=== PATIENT | male | born 1945 | race Caucasian/White ===

== ENCOUNTER 2017-08-18 11:09 | Inpatient (IN) | payer OTHER ==
[~2017-08-18] VITALS: Ht 177.8 cm; Wt 83.6 kg
--- NOTE | ~2017-08-18 | PR ---
[place], [place] PROGRESS NOTE [id number] UNIT #: [id number] ROOM: 511 DOCTOR: MIMI VILLALBA MD BIRTHDATE: [birth year] DOS: 08/19/2017 SUBJECTIVE: The patient was seen in the Cardiology Department today 08/19/2017 prior to a pharmacologic stress test. He is a 71-year-old man who has numerous risk factors for coronary artery disease and presented with atypical chest pain yesterday. Since he has been admitted, he states that his pains have resolved. Serial troponin levels have shown no elevation to suggest a recent myocardial injury. PHYSICAL EXAMINATION: VITAL SIGNS: Today, his pulse is 65 and regular, blood pressure is 157/73. He is afebrile. He weighs 83.6 kilograms with a body mass index of 26.4. NECK: Supple. He has no jugular distention. Carotids are full without bruits. LUNGS: Respirations are unlabored. He has decreased breath sounds bilaterally. HEART: Has a regular rhythm with a fourth heart sound. ABDOMEN: Obese, but otherwise benign. EXTREMITIES: Showed no edema today. IMPRESSION: 1. Atypical chest pain. 2. Multiple coronary risk factors including diabetes, hypertension, hyperlipidemia and obstructive sleep apnea. Complicating his evaluation is the fact that he does have chronic renal insufficiency and IVP DYE allergy. PLAN: We will proceed with a pharmacologic stress test today to help risk stratify the patient. If he has a normal test or a mildly abnormal test, we will probably strive to treat him medically for coronary atherosclerosis. On the other hand, if he does have a very high risk study, we will discuss with him the possibility of proceeding with catheterization, understanding that his risk for complications will be higher than the average patients. I thank the hospitalist physicians for asking our advice regarding his care. MIMI VILLALBA MD CM:PNTRANS 07 MIMI VILLALBA MD 08/19/178 interface
[~2017-08-18 11:09] MED LIST: ABILIFY20 MG PO; ASPIRIN81 MG PO; ATIVAN1 MG PO; CARVEDILOL12.5 MG PO; CELEXA40 MG PO; CIPROFLOXACIN500 MG PO; DIVALPROEX SOD500 M1 PO; EC NAPROSYN500 MG PO; ERGOCALCIFER50000 IU PO; HUMALOG100 U/ML SC; LANTUS SOL100 UNIT/1 SQ; LASIX40 MG PO; LISINOPRIL40 MG PO; LYRICA50 MG PO; METFORMIN1000 MG PO; MICRONASE5 MG PO; MULTIPLE VITAMI1 CAP PO; NORVASC5 MG PO; NOVOLIN 70/30 701 EA SC; ONDANSETRON H2 MG/ML IV; OXYBUTYNIN5 MG PO; PLAVIX75 MG PO; PROTONIX40 M1 IV; RANITIDINE150 MG PO; ROPINIROLE HYD0.5 MG PO; SERTRALINE HYD100 MG PO; SIMVASTATIN40 MG PO; TERAZOSIN HCL2 MG PO
[2017-08-18 11:21] VITALS: BP 154/72
[2017-08-18 12:05] LABS: BASO % 0.7 % (0.0-1.0); EOS # 0.2 10*3/uL (0.0-0.4); EOS % 3.7 % (1.0-4.0); HEMATOCRIT 37.5 % (42.0-52.0); HEMOGLOBIN 12.7 g/dl (14.0-18.0); LYMPH # 1.1 10*3/uL (1.3-4.4); LYMPH % 23.5 % (27.0-41.0); MEAN CELL VOLUME 90.6 fl (80.0-94.0); MEAN CORPUSCULAR HGB 30.7 pg (27.0-31.0); MEAN CORPUSCULAR HGB CONC 33.9 g/dl (33.0-37.0); MEAN PLATELET VOLUME 10.4 fl (9.6-12.3); MONO # 0.3 10*3/uL (0.1-1.0); MONO % 6.4 % (3.0-9.0); PLATELET COUNT AUTOMATED 141 10*3/uL (130-400); RED BLOOD COUNT 4.14 10*6/uL (4.50-5.90); RED CELL DISTRI WIDTH 12.7 % (0-14.5); WHITE BLOOD COUNT 4.6 10*3/uL (4.8-10.8)
[2017-08-18 12:15] LABS: ACT PARTIAL THROMBO TIME 24.5 SECONDS (20.8-31.5)
[2017-08-18 12:22] LABS: ALBUMIN 3.2 gm/dl (3.1-4.5); CREATININE 1.66 mg/dL (0.70-1.30); MAGNESIUM 2.1 mg/dL (1.5-2.1); POTASSIUM 4.2 mmol/L (3.5-5.1); TOTAL PROTEIN 6.7 gm/dL (6.4-8.2)
[2017-08-18 12:24] LABS: TROPONIN I 0.019 ng/ml (<0.045)
[2017-08-18 12:56] VITALS: BP 155/75
[2017-08-18 13:30] VITALS: BP 150/64
--- NOTE | 2017-08-18 13:30 | NUR ---
DC TO HOME
[2017-08-18 13:50] VITALS: BP 154/72
--- NOTE | 2017-08-18 13:50 | NUR ---
A 71, admitted to , under the services of CHASITY Churchill DO with a diagnosis of CHEST PAIN. Chief complaint is CHEST PAIN FOR MONTHS. Patient arrived via stretcher from ER. Monitor applied. Initial assessment completed. Vital signs taken and recorded. CHASITY CHURCHILL DO notified of admission to the unit. Orders received. See assessment for past medical history, medications and allergies. Patient and/or family oriented to unit. [facility] visitation policy reviewed. Clothing/patient valuable form completed. AGNES DEXTER
[2017-08-18] MEDS ORDERED: CLOPIDOGREL75 MG PO (13:53)
[2017-08-18] MEDS ORDERED: TERAZOSIN HCL10 M1 PO (14:00)
[2017-08-18] MEDS ORDERED: LYRICA50 M1 PO (14:01)
[2017-08-18] MEDS ORDERED: ISOSORBIDE30 MG PO (14:04)
[2017-08-18] MEDS ORDERED: ZOLOFT100 MG PO (14:05)
[2017-08-18] MEDS ORDERED: ZESTRIL40 MG PO (14:09)
[2017-08-18] MEDS ORDERED: TROSPIUM CHLORI20 M1 PO (14:09)
[2017-08-18] MEDS ORDERED: LIPITOR80 MG PO (14:10)
[2017-08-18] MEDS ORDERED: RANITIDINE HCL150 M1 PO (14:12)
[2017-08-18] MEDS ORDERED: FLUTICASONE P15.8 ML NAS (14:14)
[2017-08-18] MEDS ORDERED: NITROSTAT0.4 MG SL (14:15)
--- NOTE | 2017-08-18 14:20 | NUR ---
MEDICATIONS VERIFIED BY [place] MEDICATION LIST. PER PATIENT HE TAKES ALL HIS HOME MEDICATIONS AT BED TIME. DR. DANIELSON NOTIFIED AT THIS TIME.
[2017-08-18 16:00] VITALS: BP 160/84
--- NOTE | 2017-08-18 16:00 | NUR ---
DR LORA HERE TO SEE PT
[2017-08-18 20:00] VITALS: BP 158/90
[2017-08-19] VITALS: BP 158/78
--- NOTE | 2017-08-19 03:23 | NUR ---
RESTING IN BED WITH EYES CLOSED. NO SIGNS OR SYMPTOMS OF DISTRESS NOTED. SLEPT WELL THROUGHOUT SHIFT. NO COMPLAINTS OF PAIN OR DISCOMFORT VOICED. WILL CONTINUE TO MONITOR. CALL LIGHT IN REACH.
[2017-08-19 07:18] LABS: BASO % 0.4 % (0.0-1.0); EOS # 0.3 10*3/uL (0.0-0.4); EOS % 5.2 % (1.0-4.0); HEMATOCRIT 35.5 % (42.0-52.0); HEMOGLOBIN 12.3 g/dl (14.0-18.0); LYMPH # 1.5 10*3/uL (1.3-4.4); LYMPH % 28.8 % (27.0-41.0); MEAN CELL VOLUME 89.6 fl (80.0-94.0); MEAN CORPUSCULAR HGB 31.1 pg (27.0-31.0); MEAN CORPUSCULAR HGB CONC 34.6 g/dl (33.0-37.0); MEAN PLATELET VOLUME 10.7 fl (9.6-12.3); MONO # 0.4 10*3/uL (0.1-1.0); MONO % 6.6 % (3.0-9.0); NEUT # 3.1 10*3/uL (2.3-7.9); NEUT % 58.4 % (47.0-73.0); PLATELET COUNT AUTOMATED 148 10*3/uL (130-400); RED BLOOD COUNT 3.96 10*6/uL (4.50-5.90); RED CELL DISTRI WIDTH 12.6 % (0-14.5); WHITE BLOOD COUNT 5.3 10*3/uL (4.8-10.8)
[2017-08-19 07:35] LABS: ALBUMIN 3.2 gm/dl (3.1-4.5); CREATININE 1.5 mg/dL (0.70-1.30); MAGNESIUM 2.1 mg/dL (1.5-2.1); PHOSPHOROUS 3.6 mg/dL (2.5-4.9); POTASSIUM 3.5 mmol/L (3.5-5.1); TOTAL PROTEIN 6.6 gm/dL (6.4-8.2)
[2017-08-19 07:36] LABS: ACT PARTIAL THROMBO TIME 24.1 SECONDS (20.8-31.5); INTERNATIONAL NORM RATIO 1.1 (2.0-3.5)
[2017-08-19 07:41] LABS: FREE T4 0.92 ng/dl (0.76-1.46); THYROID STIM HORMONE (HS) 2.02 uIU/ml (0.358-4.75)
[2017-08-19 08:00] VITALS: BP 157/73
--- NOTE | 2017-08-19 08:30 | NUR ---
UNDERCOATER VS. PT OFF FLOOR FOR TESTING.
[2017-08-19 09:37] LABS: VITAMIN D, 25-HYDROXY 25.8 ng/mL (30-100)
--- NOTE | 2017-08-19 09:42 | NUR ---
INFORMED SIGNED CONSENT OBTAINED FOR LEXISCAN STRESS TEST WITH DR VILLALBA. RESTING EKG NSR HR 69 BP 136/82. PULSE OX 97% LUNGS CLEAR. ONE MINUTE LEXISCAN PROTOCOL COMPLETED WITH PT RECEIVING LEXISCAN 0.4MG IV OVER 10 SECONDS. NO ARRHYTHMIAS OR ST CHANGES NOTED. PT C/O SOB WITH INFUSION. LAST RECOVERY HR OF 81 BP 130/70. PT IN STABLE CONDITION, AWAITING NUCLEAR IMAGES.
--- NOTE | 2017-08-19 10:53 | NUR ---
SPOKE WITH PATRIZIA AT [facility]. AWARE PT IS HERE AND WILLING TO COME IF BED AVAILABLE. ALSO AWARE THAT [facility] SENT HIM HERE AND PT WANTS [facility] TO PAY THIS VISIT.
--- NOTE | 2017-08-19 15:49 | NUR ---
Discharge instructions reviewed with patient/family. Patient receptive and verbalizes understanding. Follow-up care arranged. Written instructions given to patient/family. JESSICA KUMAR
== END 2017-08-19 15:49 | disposition home or self-care (01) | DRG 391 ==
LOC: ED 11:09 → 5E 13:03 → EDHOLD 13:03 → 5E 13:04
PROVIDERS: Emergency Medicine; Internal Medicine; ADMIT Emergency Medicine
DX: K21.9 Gastro-esophageal reflux disease without esophagitis (principal); N17.0 Acute kidney failure with tubular necrosis; I13.2 Hypertensive heart and chronic kidney disease with heart failure and with stage 5 chronic kidney disease, or end stage renal disease; N18.6 End stage renal disease; I50.32 Chronic diastolic (congestive) heart failure; Z68.41 Body mass index [BMI] 40.0-44.9, adult; G47.33 Obstructive sleep apnea (adult) (pediatric); G20 Parkinson's disease; E66.01 Morbid (severe) obesity due to excess calories; E11.42 Type 2 diabetes mellitus with diabetic polyneuropathy; I25.119 Atherosclerotic heart disease of native coronary artery with unspecified angina pectoris; D64.9 Anemia, unspecified; E11.65 Type 2 diabetes mellitus with hyperglycemia; D72.810 Lymphocytopenia; E78.5 Hyperlipidemia, unspecified; E11.22 Type 2 diabetes mellitus with diabetic chronic kidney disease; Z86.73 Personal history of transient ischemic attack (TIA), and cerebral infarction without residual deficits; I25.2 Old myocardial infarction; Z79.4 Long term (current) use of insulin; Z91.041 Radiographic dye allergy status; Z87.440 Personal history of urinary (tract) infections; Z98.52 Vasectomy status; Z82.49 Family history of ischemic heart disease and other diseases of the circulatory system; Z83.3 Family history of diabetes mellitus; Z80.9 Family history of malignant neoplasm, unspecified; Z86.718 Personal history of other venous thrombosis and embolism; Z86.711 Personal history of pulmonary embolism; Z79.899 Other long term (current) drug therapy; Z87.891 Personal history of nicotine dependence

== ENCOUNTER 2018-01-11 06:03 | Emergency (ER) | payer OTHER ==
[~2018-01-11] VITALS: Ht 177.8 cm; Wt 127.0 kg
[~2018-01-11 06:03] MED LIST changes: +CLOPIDOGREL75 MG PO; +FLUTICASONE P15.8 ML NAS; +ISOSORBIDE30 MG PO; +LIPITOR80 MG PO; +LYRICA50 M1 PO; +NITROSTAT0.4 MG SL; +RANITIDINE HCL150 M1 PO; +TERAZOSIN HCL10 M1 PO; +TROSPIUM CHLORI20 M1 PO; +ZESTRIL40 MG PO; +ZOLOFT100 MG PO
[2018-01-11 06:31] LABS: BASO % 0.3 % (0.0-1.0); EOS # 0.2 10*3/uL (0.0-0.4); EOS % 2.8 % (1.0-4.0); HEMATOCRIT 39.2 % (42.0-52.0); HEMOGLOBIN 13.9 g/dl (14.0-18.0); LYMPH # 1.5 10*3/uL (1.3-4.4); LYMPH % 25.3 % (27.0-41.0); MEAN CELL VOLUME 87.5 fl (80.0-94.0); MEAN CORPUSCULAR HGB CONC 35.5 g/dl (33.0-37.0); MEAN PLATELET VOLUME 11.2 fl (9.6-12.3); MONO # 0.5 10*3/uL (0.1-1.0); MONO % 8.8 % (3.0-9.0); NEUT # 3.6 10*3/uL (2.3-7.9); NEUT % 62.5 % (47.0-73.0); PLATELET COUNT AUTOMATED 177 10*3/uL (130-400); RED BLOOD COUNT 4.48 10*6/uL (4.50-5.90); RED CELL DISTRI WIDTH 12.1 % (0-14.5); WHITE BLOOD COUNT 5.8 10*3/uL (4.8-10.8)
[2018-01-11 06:51] LABS: ACT PARTIAL THROMBO TIME 23.2 SECONDS (20.8-31.5); ALBUMIN 3.3 gm/dl (3.1-4.5); CREATININE 1.81 mg/dL (0.70-1.30); POTASSIUM 3.8 mmol/L (3.5-5.1); TOTAL PROTEIN 6.8 gm/dL (6.4-8.2)
[2018-01-11 06:52] LABS: TROPONIN I 0.025 ng/ml (<0.045)
[2018-01-11 08:16] LABS: BILIRUBIN NEGATIVE (NEGATIVE); BLOOD 1+ (NEGATIVE); CLARITY CLEAR (CLEAR); COLOR YELLOW (YELLOW); GLUCOSE 3+ (NEGATIVE); KETONE TRACE (NEGATIVE); LEUKO ESTERASE NEGATIVE (NEGATIVE); NITRITE NEGATIVE (NEGATIVE); PH 5.5 (5.0-9.0); SPECIFIC GRAVITY 1.025 (1.005-1.030); UROBILINOGEN 0.2 E.U./dl (0.2-1.0)
[2018-01-11 08:42] LABS: BACTERIA 1+; EPITHELIAL CELLS 0-2
== END 2018-01-11 10:15 | disposition short-term general hospital (02) ==
LOC: ED 06:03
PROVIDERS: Emergency Medicine Emergency Medical Services
DX: S22.39XA Fracture of one rib, unspecified side, initial encounter for closed fracture (principal); E11.65 Type 2 diabetes mellitus with hyperglycemia; I25.10 Atherosclerotic heart disease of native coronary artery without angina pectoris; I10 Essential (primary) hypertension; K21.9 Gastro-esophageal reflux disease without esophagitis; E78.5 Hyperlipidemia, unspecified; I25.2 Old myocardial infarction; E11.40 Type 2 diabetes mellitus with diabetic neuropathy, unspecified; G93.40 Encephalopathy, unspecified; Z91.040 Latex allergy status; Z86.73 Personal history of transient ischemic attack (TIA), and cerebral infarction without residual deficits; Z87.891 Personal history of nicotine dependence; X58.XXXA Exposure to other specified factors, initial encounter; Y93.89 Activity, other specified; Y92.89 Other specified places as the place of occurrence of the external cause; Y99.8 Other external cause status

== ENCOUNTER 2018-01-19 11:18 | Inpatient (IN) | payer MEDICARE ==
[2018-01-19] VITALS (7 sets, daily range): BP systolic 98–155; BP diastolic 53–84
[~2018-01-19] VITALS: Ht 177.8 cm
--- NOTE | ~2018-01-19 | CON ---
[place], [place] REPORT OF CONSULTATION NAME: MIMI TRUJILLO UNIT #: [id number] ROOM: 410 DOCTOR: THU HARRIS MD BIRTHDATE: [birth year] DOS: 01/22/2018 CHIEF COMPLAINT: "Oh hi Dr. Harris." HISTORY OF PRESENT ILLNESS: This is a 72-year-old male who presented through the Emergency Room with altered mental status and frequent falls. The patient was in the ER in [place] on January 11 for similar symptoms and transferred to [facility] for a neurologic workup. The patient has been exhibiting odd behavior at home like lying on the floor surrounded by pillows. He is forgetting where he is at. He is slurring his speech and not finding the right words. He has not been eating or drinking much for the last 3-4 weeks. PAST MEDICAL HISTORY: Remarkable for COPD, cerebral aneurysm clipping x 2, [place] exposure, coronary artery disease, chronic kidney disease, diabetes, GERD, hypertension, hyperlipidemia, neuropathy, obstructive sleep apnea. MENTAL STATUS: The patient is alert and oriented to person, place, approximate to time. He is rather slow in his responses. He did nod off occasionally and had to be reengaged. He does seem somewhat depressed and processes slowly. There is no hypomania or scott. There are no overt auditory or visual hallucinations. No delusions, no paranoia. Memory has some gaps. DIAGNOSIS: Major depression, recurrent. PLAN: He is on redundant antidepressants. The Zoloft and the Celexa can put him at greater risk for delirium and/or serotonin syndrome. They also seem to be ineffective, so I will discontinue both of them in lieu of Remeron 15 mg at bedtime. This should give him maximal appetite and sleep improvement. He is also on a subtherapeutic dose of Depakote 500 mg, should not be doing anything significant, so I will discontinue this in an effort to try to clean up his psychotropics. Should you require further intervention, please feel free to contact me at any time. THU HARRIS MD CM:CONSTR:REPORT OF CONSULTATION 1018 01/22/18 1341 interface
[2018-01-19 12:06] LABS: BASO % 0.4 % (0.0-1.0); EOS # 0.2 10*3/uL (0.0-0.4); EOS % 4.6 % (1.0-4.0); HEMATOCRIT 36.6 % (42.0-52.0); HEMOGLOBIN 12.4 g/dl (14.0-18.0); LYMPH # 1.1 10*3/uL (1.3-4.4); LYMPH % 23.6 % (27.0-41.0); MEAN CELL VOLUME 90.8 fl (80.0-94.0); MEAN CORPUSCULAR HGB 30.8 pg (27.0-31.0); MEAN CORPUSCULAR HGB CONC 33.9 g/dl (33.0-37.0); MEAN PLATELET VOLUME 10.3 fl (9.6-12.3); MONO # 0.4 10*3/uL (0.1-1.0); MONO % 7.5 % (3.0-9.0); NEUT % 63.5 % (47.0-73.0); PLATELET COUNT AUTOMATED 163 10*3/uL (130-400); RED BLOOD COUNT 4.03 10*6/uL (4.50-5.90); WHITE BLOOD COUNT 4.8 10*3/uL (4.8-10.8)
[2018-01-19 12:14] LABS: ACT PARTIAL THROMBO TIME 22.2 SECONDS (20.8-31.5)
[2018-01-19 12:21] LABS: CREATININE 1.98 mg/dL (0.70-1.30); POTASSIUM 3.9 mmol/L (3.5-5.1); TOTAL PROTEIN 6.6 gm/dL (6.4-8.2); TROPONIN I 0.021 ng/ml (<0.045)
[2018-01-19 15:12] LABS: BILIRUBIN NEGATIVE (NEGATIVE); BLOOD NEGATIVE (NEGATIVE); CLARITY CLEAR (CLEAR); COLOR YELLOW (YELLOW); GLUCOSE 2+ (NEGATIVE); KETONE NEGATIVE (NEGATIVE); LEUKO ESTERASE NEGATIVE (NEGATIVE); NITRITE NEGATIVE (NEGATIVE); SPECIFIC GRAVITY >= 1.030 (1.005-1.030); UROBILINOGEN 0.2 E.U./dl (0.2-1.0)
[2018-01-19 16:06] LABS: BACTERIA TRACE; FINE GRANULAR CAST 0-2; HYALINE CAST 0-3; RBC 0-2 rbc/hpf (0-2); WBC 0-2 wbc/hpf (0-5)
[2018-01-19] MEDS ORDERED: CELEXA40 MG PO (18:43)
[2018-01-19] MEDS ORDERED: DEPAKOTE DR500 MG PO (18:44)
[2018-01-19] MEDS ORDERED: VITAMIN D50000 UNIT PO (18:46)
[2018-01-19] MEDS ORDERED: LASIX40 MG PO (18:47)
[2018-01-19] MEDS ORDERED: GLYBURIDE5 MG PO (18:49)
[2018-01-19] MEDS ORDERED: AFREZZA SC (18:54)
[2018-01-19] MEDS ORDERED: METFORMIN1000 MG PO (18:55)
[2018-01-19] MEDS ORDERED: EC NAPROSYN,NA500 MG PO (18:56)
[2018-01-19] MEDS ORDERED: DITROPAN XL5 MG PO (18:57)
[2018-01-19] MEDS ORDERED: REQUIP0.5 MG PO (18:58)
[2018-01-19] MEDS ORDERED: SIMVASTATIN40 MG PO (18:59)
[2018-01-20] VITALS: BP 187/89
[2018-01-20 04:00] VITALS: BP 188/78
[2018-01-20 05:34] LABS: URINE AMPHETAMINES < 1000 (1000ng/ml); URINE BARBITURATES < 200 (200ng/ml); URINE BENZODIAZEPINES < 200 (200ng/ml); URINE CANNABINOIDS (THC) < 50 (50ng/ml); URINE COCAINE < 300 (300ng/ml); URINE METHADONE < 300 (300ng/ml); URINE OPIATES < 300 (300ng/ml)
[2018-01-20 05:36] LABS: URINE PHENCYCLIDINE < 25 (25ng/ml)
[2018-01-20 06:16] LABS: BASO % 0.9 % (0.0-1.0); EOS # 0.2 10*3/uL (0.0-0.4); EOS % 4.8 % (1.0-4.0); HEMATOCRIT 34.4 % (42.0-52.0); HEMOGLOBIN 11.8 g/dl (14.0-18.0); LYMPH # 1.5 10*3/uL (1.3-4.4); MEAN CELL VOLUME 89.8 fl (80.0-94.0); MEAN CORPUSCULAR HGB 30.8 pg (27.0-31.0); MEAN CORPUSCULAR HGB CONC 34.3 g/dl (33.0-37.0); MONO # 0.3 10*3/uL (0.1-1.0); MONO % 5.6 % (3.0-9.0); NEUT # 2.6 10*3/uL (2.3-7.9); NEUT % 56.3 % (47.0-73.0); PLATELET COUNT AUTOMATED 154 10*3/uL (130-400); RED BLOOD COUNT 3.83 10*6/uL (4.50-5.90); RED CELL DISTRI WIDTH 11.9 % (0-14.5); WHITE BLOOD COUNT 4.6 10*3/uL (4.8-10.8)
[2018-01-20 06:42] LABS: ALBUMIN 2.8 gm/dl (3.1-4.5); CREATININE 1.74 mg/dL (0.70-1.30); FREE T4 0.98 ng/dl (0.76-1.46); PHOSPHOROUS 3.2 mg/dL (2.5-4.9); POTASSIUM 3.6 mmol/L (3.5-5.1)
[2018-01-20 06:46] LABS: ACT PARTIAL THROMBO TIME 23.3 SECONDS (20.8-31.5)
[2018-01-20 06:47] LABS: THYROID STIM HORMONE (HS) 1.99 uIU/ml (0.358-4.75)
[2018-01-20 07:28] LABS: VITAMIN D, 25-HYDROXY 9.5 ng/mL (30-100)
[2018-01-20 08:00] VITALS: BP 179/81
[2018-01-20 12:00] VITALS: BP 177/75
[2018-01-20 16:00] VITALS: BP 146/98; BP 193/82
[2018-01-20 20:00] VITALS: BP 170/90
[2018-01-21] VITALS (9 sets, daily range): BP systolic 113–192; BP diastolic 68–94
[2018-01-21 06:21] LABS: BASO % 0.4 % (0.0-1.0); EOS # 0.3 10*3/uL (0.0-0.4); HEMATOCRIT 36.1 % (42.0-52.0); HEMOGLOBIN 12.5 g/dl (14.0-18.0); LYMPH # 1.6 10*3/uL (1.3-4.4); LYMPH % 30.2 % (27.0-41.0); MEAN CELL VOLUME 89.1 fl (80.0-94.0); MEAN CORPUSCULAR HGB 30.9 pg (27.0-31.0); MEAN CORPUSCULAR HGB CONC 34.6 g/dl (33.0-37.0); MEAN PLATELET VOLUME 11.4 fl (9.6-12.3); MONO # 0.4 10*3/uL (0.1-1.0); MONO % 6.8 % (3.0-9.0); NEUT # 3.1 10*3/uL (2.3-7.9); PLATELET COUNT AUTOMATED 167 10*3/uL (130-400); RED BLOOD COUNT 4.05 10*6/uL (4.50-5.90); RED CELL DISTRI WIDTH 11.9 % (0-14.5); WHITE BLOOD COUNT 5.4 10*3/uL (4.8-10.8)
[2018-01-21 06:53] LABS: ALBUMIN 3.1 gm/dl (3.1-4.5); POTASSIUM 3.5 mmol/L (3.5-5.1)
[2018-01-21 06:57] LABS: CREATININE 1.57 mg/dL (0.70-1.30); TOTAL PROTEIN 6.6 gm/dL (6.4-8.2)
[2018-01-22 01:31] VITALS: BP 148/82
[2018-01-22 06:53] LABS: ALBUMIN 2.8 gm/dl (3.1-4.5); CREATININE 1.59 mg/dL (0.70-1.30); PHOSPHOROUS 3.6 mg/dL (2.5-4.9); POTASSIUM 3.8 mmol/L (3.5-5.1)
[2018-01-22 08:00] VITALS: BP 129/76
[2018-01-22 12:00] VITALS: BP 159/75
[2018-01-22 16:00] VITALS: BP 133/66
[2018-01-22 20:00] VITALS: BP 164/67
[2018-01-23] VITALS (7 sets, daily range): BP systolic 117–160; BP diastolic 61–71
[2018-01-24] VITALS: BP 147/77
[2018-01-24 06:18] LABS: BASO % 0.8 % (0.0-1.0); EOS # 0.3 10*3/uL (0.0-0.4); EOS % 5.6 % (1.0-4.0); HEMATOCRIT 37.2 % (42.0-52.0); HEMOGLOBIN 12.8 g/dl (14.0-18.0); LYMPH # 1.4 10*3/uL (1.3-4.4); LYMPH % 29.3 % (27.0-41.0); MEAN CELL VOLUME 90.5 fl (80.0-94.0); MEAN CORPUSCULAR HGB 31.1 pg (27.0-31.0); MEAN CORPUSCULAR HGB CONC 34.4 g/dl (33.0-37.0); MEAN PLATELET VOLUME 11.1 fl (9.6-12.3); MONO # 0.3 10*3/uL (0.1-1.0); MONO % 6.9 % (3.0-9.0); NEUT # 2.7 10*3/uL (2.3-7.9); NEUT % 56.8 % (47.0-73.0); PLATELET COUNT AUTOMATED 151 10*3/uL (130-400); RED BLOOD COUNT 4.11 10*6/uL (4.50-5.90); RED CELL DISTRI WIDTH 12.2 % (0-14.5); WHITE BLOOD COUNT 4.8 10*3/uL (4.8-10.8)
[2018-01-24 06:31] LABS: ALBUMIN 2.8 gm/dl (3.1-4.5); CREATININE 1.89 mg/dL (0.70-1.30); POTASSIUM 3.8 mmol/L (3.5-5.1); TOTAL PROTEIN 6.3 gm/dL (6.4-8.2)
[2018-01-24 08:00] VITALS: BP 138/64
[2018-01-24] MEDS ORDERED: MIRTAZAPINE15 M2 PO (10:24)
[2018-01-24] MEDS ORDERED: HYDR12.5C PO (10:24)
[2018-01-24] MEDS ORDERED: NATURE'S BLEND F1 MG PO (10:25)
[2018-01-24] MEDS ORDERED: VITAMIN D31000 UNIT PO (10:25)
[2018-01-24 12:00] VITALS: BP 160/74
[2018-01-24 16:00] VITALS: BP 150/70
== END 2018-01-24 16:35 | disposition home or self-care (01) | DRG 682 ==
LOC: ED 11:18 → 4E 17:23 → EDHOLD 17:23 → 4E 17:47
PROVIDERS: Emergency Medicine; Internal Medicine; Internal Medicine Hospice and Palliative Medicine
DX: N17.0 Acute kidney failure with tubular necrosis (principal); G93.41 Metabolic encephalopathy; E44.0 Moderate protein-calorie malnutrition; E11.40 Type 2 diabetes mellitus with diabetic neuropathy, unspecified; I50.32 Chronic diastolic (congestive) heart failure; F33.9 Major depressive disorder, recurrent, unspecified; I13.0 Hypertensive heart and chronic kidney disease with heart failure and stage 1 through stage 4 chronic kidney disease, or unspecified chronic kidney disease; E66.01 Morbid (severe) obesity due to excess calories; E67.8 Other specified hyperalimentation; E86.0 Dehydration; E87.8 Other disorders of electrolyte and fluid balance, not elsewhere classified; D72.810 Lymphocytopenia; E11.65 Type 2 diabetes mellitus with hyperglycemia; G47.33 Obstructive sleep apnea (adult) (pediatric); N18.3 Chronic kidney disease, stage 3 (moderate); K21.9 Gastro-esophageal reflux disease without esophagitis; R26.81 Unsteadiness on feet; D64.9 Anemia, unspecified; E87.5 Hyperkalemia; I25.10 Atherosclerotic heart disease of native coronary artery without angina pectoris; Z77.098 Contact with and (suspected) exposure to other hazardous, chiefly nonmedicinal, chemicals; E53.8 Deficiency of other specified B group vitamins; R29.6 Repeated falls; G20 Parkinson's disease; J44.9 Chronic obstructive pulmonary disease, unspecified; E78.5 Hyperlipidemia, unspecified; Z86.73 Personal history of transient ischemic attack (TIA), and cerebral infarction without residual deficits; I25.2 Old myocardial infarction; Z98.52 Vasectomy status; Z83.3 Family history of diabetes mellitus; Z82.49 Family history of ischemic heart disease and other diseases of the circulatory system; Z88.8 Allergy status to other drugs, medicaments and biological substances; Z91.041 Radiographic dye allergy status; Z79.4 Long term (current) use of insulin; Z79.84 Long term (current) use of oral hypoglycemic drugs; Z79.899 Other long term (current) drug therapy; Z68.38 Body mass index [BMI] 38.0-38.9, adult

== ENCOUNTER 2018-02-17 12:03 | Emergency (ER) | payer OTHER, MEDICARE ==
[~2018-02-17] VITALS: Ht 177.8 cm; Wt 113.4 kg
[~2018-02-17 12:03] MED LIST changes: +AFREZZA SC; +DEPAKOTE DR500 MG PO; +DITROPAN XL5 MG PO; +EC NAPROSYN,NA500 MG PO; +GLYBURIDE5 MG PO; +HYDR12.5C PO; +MIRTAZAPINE15 M2 PO; +NATURE'S BLEND F1 MG PO; +REQUIP0.5 MG PO; +VITAMIN D31000 UNIT PO; +VITAMIN D50000 UNIT PO
[2018-02-17 12:38] LABS: BASO % 0.5 % (0.0-1.0); EOS # 0.2 10*3/uL (0.0-0.4); EOS % 3.9 % (1.0-4.0); HEMATOCRIT 38.3 % (42.0-52.0); HEMOGLOBIN 13.3 g/dl (14.0-18.0); LYMPH # 1.4 10*3/uL (1.3-4.4); LYMPH % 23.7 % (27.0-41.0); MEAN CELL VOLUME 89.9 fl (80.0-94.0); MEAN CORPUSCULAR HGB 31.2 pg (27.0-31.0); MEAN CORPUSCULAR HGB CONC 34.7 g/dl (33.0-37.0); MEAN PLATELET VOLUME 10.6 fl (9.6-12.3); MONO # 0.4 10*3/uL (0.1-1.0); MONO % 7.2 % (3.0-9.0); NEUT # 3.8 10*3/uL (2.3-7.9); NEUT % 64.4 % (47.0-73.0); PLATELET COUNT AUTOMATED 179 10*3/uL (130-400); RED BLOOD COUNT 4.26 10*6/uL (4.50-5.90); RED CELL DISTRI WIDTH 12.5 % (0-14.5)
[2018-02-17 12:50] LABS: ACT PARTIAL THROMBO TIME 23.7 SECONDS (20.8-31.5)
[2018-02-17 12:59] LABS: ALBUMIN 3.3 gm/dl (3.1-4.5); ALKALINE PHOSPHATASE 109 U/L (45-117); BUN 16 mg/dl (7-24); CHLORIDE 105 mmol/L (98-107); CREATININE 1.44 mg/dL (0.70-1.30); LIPASE 143 U/L (73-393); POTASSIUM 3.7 mmol/L (3.5-5.1); SGOT/AST 13 IU/L (3-35); SGPT/ALT 16 U/L (12-78); SODIUM 138 mmol/L (136-145); TOTAL PROTEIN 6.9 gm/dL (6.4-8.2)
[2018-02-17 13:00] LABS: TROPONIN I < 0.015 ng/ml (<0.045)
== END 2018-02-17 15:32 | disposition home or self-care (01) ==
LOC: ED 12:03
PROVIDERS: Emergency Medicine
DX: J02.9 Acute pharyngitis, unspecified (principal); I13.0 Hypertensive heart and chronic kidney disease with heart failure and stage 1 through stage 4 chronic kidney disease, or unspecified chronic kidney disease; E11.22 Type 2 diabetes mellitus with diabetic chronic kidney disease; N18.9 Chronic kidney disease, unspecified; I50.9 Heart failure, unspecified; I25.10 Atherosclerotic heart disease of native coronary artery without angina pectoris; K21.9 Gastro-esophageal reflux disease without esophagitis; E78.00 Pure hypercholesterolemia, unspecified; E66.01 Morbid (severe) obesity due to excess calories; G47.33 Obstructive sleep apnea (adult) (pediatric); Z68.41 Body mass index [BMI] 40.0-44.9, adult; Z86.73 Personal history of transient ischemic attack (TIA), and cerebral infarction without residual deficits; Z87.891 Personal history of nicotine dependence; Z90.89 Acquired absence of other organs; Z98.890 Other specified postprocedural states; Z79.4 Long term (current) use of insulin; Z91.041 Radiographic dye allergy status

== ENCOUNTER 2019-02-13 14:26 | Emergency (ER) | payer MEDICARE, OTHER ==
[~2019-02-13] VITALS: Ht 180.3 cm; Wt 115.7 kg
--- NOTE | ~2019-02-13 | EKG ---
[place], [place] ELECTROCARDIOGRAM REPORT NAME: MIMI TRUJILLO UNIT #: [id number] ROOM: DOCTOR: EPIPHANY DRAFT REPORT BIRTHDATE: [birth year] [facility] Test Date: 2019-02-13 Test Time: 14:49:16 Pat Name: MIMI TRUJILLO Department: Room: Gender: B2B Outside Sales Representative: Marcella Conway : 1945 Requested By: KAREN PHELAN Order Number: [id number] Reading MD: Eitan Antonio Measurements Intervals [place] Rate: 73 P: 32 [place]: 201 QRS: 121 QRSD: 127 T: 34 QT: 401 QTc: 442 Interpretive Statements Sinus rhythm Nonspecific intraventricular conduction delay No previous ECG available for comparison Electronically Signed On 02-14-2019 10:58:34 PDT by Eitan Antonio CM:EKGRPT:ELECTROCARDIOGRAM REPORT [id number] KAREN FIELDS DRAFT REPORT KAREN PHELAN DO
[2019-02-13 15:00] LABS: BASO % 0.5 % (0.0-1.0); EOS # 0.2 10*3/uL (0.0-0.4); HEMATOCRIT 36.5 % (42.0-52.0); HEMOGLOBIN 12.2 g/dl (14.0-18.0); LYMPH # 1.4 10*3/uL (1.3-4.4); LYMPH % 24.8 % (27.0-41.0); MEAN CELL VOLUME 94.6 fl (80.0-94.0); MEAN CORPUSCULAR HGB 31.6 pg (27.0-31.0); MEAN CORPUSCULAR HGB CONC 33.4 g/dl (33.0-37.0); MEAN PLATELET VOLUME 10.6 fl (9.6-12.3); MONO # 0.3 10*3/uL (0.1-1.0); MONO % 5.9 % (3.0-9.0); NEUT # 3.7 10*3/uL (2.3-7.9); NEUT % 64.5 % (47.0-73.0); PLATELET COUNT AUTOMATED 161 10*3/uL (130-400); RED BLOOD COUNT 3.86 10*6/uL (4.50-5.90); RED CELL DISTRI WIDTH 12.7 % (0-14.5); WHITE BLOOD COUNT 5.7 10*3/uL (4.8-10.8)
[2019-02-13 15:13] LABS: ACT PARTIAL THROMBO TIME 19.3 SECONDS (20.8-31.5)
[2019-02-13 15:19] LABS: ALBUMIN 3.2 gm/dl (3.1-4.5); ALKALINE PHOSPHATASE 128 U/L (45-117); BUN 24 mg/dl (7-24); CHLORIDE 108 mmol/L (98-107); CPK 25 U/L (39-308); CREATININE 1.71 mg/dL (0.70-1.30); SGOT/AST 12 IU/L (3-35); SGPT/ALT 18 U/L (12-78); SODIUM 140 mmol/L (136-145); TOTAL PROTEIN 7.2 gm/dL (6.4-8.2)
[2019-02-13 15:20] LABS: CKMB 1.7 ng/ml (0.5-3.6)
[2019-02-13 15:35] LABS: TROPONIN I < 0.015 ng/ml (<0.045)
== END 2019-02-13 15:36 | disposition short-term general hospital (02) ==
LOC: ED 14:26
PROVIDERS: Family Medicine
DX: R26.81 Unsteadiness on feet (principal); H53.8 Other visual disturbances; E11.22 Type 2 diabetes mellitus with diabetic chronic kidney disease; I13.0 Hypertensive heart and chronic kidney disease with heart failure and stage 1 through stage 4 chronic kidney disease, or unspecified chronic kidney disease; N18.9 Chronic kidney disease, unspecified; I50.32 Chronic diastolic (congestive) heart failure; E11.40 Type 2 diabetes mellitus with diabetic neuropathy, unspecified; I25.10 Atherosclerotic heart disease of native coronary artery without angina pectoris; K21.9 Gastro-esophageal reflux disease without esophagitis; I25.2 Old myocardial infarction; E78.5 Hyperlipidemia, unspecified; E66.01 Morbid (severe) obesity due to excess calories; Z91.041 Radiographic dye allergy status; Z79.899 Other long term (current) drug therapy; Z79.84 Long term (current) use of oral hypoglycemic drugs; Z87.891 Personal history of nicotine dependence; Z68.41 Body mass index [BMI] 40.0-44.9, adult

== ENCOUNTER 2021-06-02 08:11 | Inpatient (IN) | payer OTHER ==
[~2021-06-02] VITALS: Ht 177.8 cm; Wt 107.9 kg
[2021-06-02] VITALS (8 sets, daily range): BP systolic 118–173; BP diastolic 58–89
[~2021-06-02 08:11] MED LIST changes: +ATORVASTATIN CA80 M1 PO; +CARBIDOPA-LEVO1 EAC6 PO; +COGENTIN0.5 MG PO; +HEARTBURN RELIE20 MG PO; +METFORMIN HYDR500 MG PO; +NORVASC10 MG PO; +QUETIAPINE FUM200 M2 PO
[2021-06-02 08:59] LABS: BASO % 0.3 % (0.0-1.0); EOS # 0.2 10*3/uL (0.0-0.4); LYMPH # 1.2 10*3/uL (1.3-4.4); LYMPH % 19.1 % (27.0-41.0); MEAN CELL VOLUME 91.1 fl (80.0-94.0); MEAN CORPUSCULAR HGB 31.8 pg (27.0-31.0); MEAN CORPUSCULAR HGB CONC 34.9 g/dl (33.0-37.0); MEAN PLATELET VOLUME 10.9 fl (9.6-12.3); MONO # 0.5 10*3/uL (0.1-1.0); MONO % 7.9 % (3.0-9.0); NEUT # 4.4 10*3/uL (2.3-7.9); NEUT % 69.2 % (47.0-73.0); PLATELET COUNT AUTOMATED 163 10*3/uL (130-400); RED BLOOD COUNT 4.06 10*6/uL (4.50-5.90); RED CELL DISTRI WIDTH 11.9 % (0-14.5); WHITE BLOOD COUNT 6.3 10*3/uL (4.8-10.8)
[2021-06-02 09:15] LABS: ALBUMIN 3.4 gm/dl (3.1-4.5); CREATININE 1.98 mg/dL (0.70-1.30); POTASSIUM 3.7 mmol/L (3.5-5.1); TOTAL PROTEIN 6.9 gm/dL (6.4-8.2)
[2021-06-02 10:33] LABS: BILIRUBIN Negative (Negative); BLOOD Trace-Lysed (Negative); CLARITY Clear (Clear); COLOR Yellow (Yellow); GLUCOSE 2+ (Negative); KETONE Negative (Negative); LEUKO ESTERASE Negative (Negative); NITRITE Negative (Negative); PH 5.5 (4.5-8.0); SPECIFIC GRAVITY <= 1.005 (1.001-1.030); UROBILINOGEN 0.2 E.U./dl (0.0-1.0)
[2021-06-02 10:53] LABS: BACTERIA 1+
[2021-06-02] MEDS ORDERED: REFRESH TEARS15 ML OU (15:28)
[2021-06-02] MEDS ORDERED: COREG25 MG PO (15:30)
[2021-06-02] MEDS ORDERED: VITAMIN D350 MC2 PO (15:31)
[2021-06-02] MEDS ORDERED: IMDUR SA30 MG PO (15:33)
[2021-06-02] MEDS ORDERED: ASPIRIN CHEWABL81 MG PO (15:35)
[2021-06-03] VITALS: BP 156/90
[2021-06-03 06:47] LABS: ACT PARTIAL THROMBO TIME 23.9 SECONDS (20.0-32.1)
[2021-06-03 06:52] LABS: CREATININE 2.14 mg/dL (0.70-1.30); POTASSIUM 4.6 mmol/L (3.5-5.1); TOTAL PROTEIN 6.5 gm/dL (6.4-8.2)
[2021-06-03 06:56] LABS: BASO % 0.4 % (0.0-1.0); EOS # 0.2 10*3/uL (0.0-0.4); EOS % 4.2 % (1.0-4.0); HEMATOCRIT 36.8 % (42.0-52.0); LYMPH # 1.9 10*3/uL (1.3-4.4); LYMPH % 35.5 % (27.0-41.0); MEAN CORPUSCULAR HGB 31.1 pg (27.0-31.0); MEAN CORPUSCULAR HGB CONC 32.6 g/dl (33.0-37.0); MEAN PLATELET VOLUME 11.3 fl (9.6-12.3); MONO # 0.5 10*3/uL (0.1-1.0); MONO % 8.9 % (3.0-9.0); NEUT # 2.7 10*3/uL (2.3-7.9); NEUT % 50.6 % (47.0-73.0); PLATELET COUNT AUTOMATED 167 10*3/uL (130-400); RED BLOOD COUNT 3.86 10*6/uL (4.50-5.90); RED CELL DISTRI WIDTH 12.4 % (0-14.5); WHITE BLOOD COUNT 5.3 10*3/uL (4.8-10.8)
[2021-06-03 07:09] LABS: MEAN CELL VOLUME 95.3 fl (80.0-94.0)
[2021-06-03 12:00] VITALS: BP 105/59; BP 118/64
[2021-06-03 16:00] VITALS: BP 100/50
[2021-06-03 20:00] VITALS: BP 128/50
[2021-06-03 22:05] VITALS: BP 122/66
[2021-06-04] VITALS: BP 128/50
[2021-06-04 05:35] LABS: CREATININE 2.19 mg/dL (0.70-1.30); POTASSIUM 3.9 mmol/L (3.5-5.1)
[2021-06-04 06:20] LABS: BASO % 0.3 % (0.0-1.0); EOS # 0.3 10*3/uL (0.0-0.4); EOS % 4.3 % (1.0-4.0); HEMATOCRIT 35.5 % (42.0-52.0); LYMPH # 1.5 10*3/uL (1.3-4.4); LYMPH % 24.8 % (27.0-41.0); MEAN CELL VOLUME 94.4 fl (80.0-94.0); MEAN CORPUSCULAR HGB 31.9 pg (27.0-31.0); MEAN CORPUSCULAR HGB CONC 33.8 g/dl (33.0-37.0); MEAN PLATELET VOLUME 11.3 fl (9.6-12.3); MONO # 0.5 10*3/uL (0.1-1.0); MONO % 7.7 % (3.0-9.0); NEUT # 3.7 10*3/uL (2.3-7.9); NEUT % 62.6 % (47.0-73.0); PLATELET COUNT AUTOMATED 160 10*3/uL (130-400); RED BLOOD COUNT 3.76 10*6/uL (4.50-5.90); RED CELL DISTRI WIDTH 12.4 % (0-14.5); WHITE BLOOD COUNT 5.9 10*3/uL (4.8-10.8)
[2021-06-04 08:00] VITALS: BP 152/64
[2021-06-04 12:00] VITALS: BP 124/64
[2021-06-04 16:00] VITALS: BP 110/57
[2021-06-04 20:00] VITALS: BP 129/61
[2021-06-04 22:30] VITALS: BP 131/53
[2021-06-05] VITALS: BP 143/76
[2021-06-05 06:41] LABS: BASO % 0.3 % (0.0-1.0); CREATININE 2.08 mg/dL (0.70-1.30); EOS # 0.3 10*3/uL (0.0-0.4); EOS % 4.6 % (1.0-4.0); HEMATOCRIT 38.3 % (42.0-52.0); LYMPH # 1.4 10*3/uL (1.3-4.4); LYMPH % 21.6 % (27.0-41.0); MEAN CORPUSCULAR HGB CONC 32.6 g/dl (33.0-37.0); MEAN PLATELET VOLUME 11.2 fl (9.6-12.3); MONO # 0.4 10*3/uL (0.1-1.0); MONO % 6.5 % (3.0-9.0); NEUT # 4.2 10*3/uL (2.3-7.9); NEUT % 66.4 % (47.0-73.0); PLATELET COUNT AUTOMATED 178 10*3/uL (130-400); POTASSIUM 4.1 mmol/L (3.5-5.1); RED BLOOD COUNT 4.03 10*6/uL (4.50-5.90); RED CELL DISTRI WIDTH 12.2 % (0-14.5); WHITE BLOOD COUNT 6.3 10*3/uL (4.8-10.8)
[2021-06-05 08:00] VITALS: BP 150/89
[2021-06-05 12:00] VITALS: BP 117/80
[2021-06-05 16:00] VITALS: BP 145/64
[2021-06-05 20:00] VITALS: BP 162/71
[2021-06-06] VITALS: BP 158/81
[2021-06-06 06:07] LABS: ALBUMIN 2.9 gm/dl (3.1-4.5); CREATININE 2.11 mg/dL (0.70-1.30)
[2021-06-06 06:08] LABS: TOTAL PROTEIN 6.3 gm/dL (6.4-8.2)
[2021-06-06 06:29] LABS: BASO % 0.5 % (0.0-1.0); EOS # 0.2 10*3/uL (0.0-0.4); EOS % 5.4 % (1.0-4.0); LYMPH # 1.5 10*3/uL (1.3-4.4); LYMPH % 32.7 % (27.0-41.0); MEAN CELL VOLUME 95.8 fl (80.0-94.0); MEAN CORPUSCULAR HGB 31.3 pg (27.0-31.0); MEAN CORPUSCULAR HGB CONC 32.6 g/dl (33.0-37.0); MEAN PLATELET VOLUME 11.1 fl (9.6-12.3); MONO # 0.4 10*3/uL (0.1-1.0); MONO % 9.7 % (3.0-9.0); NEUT # 2.3 10*3/uL (2.3-7.9); NEUT % 51.2 % (47.0-73.0); PLATELET COUNT AUTOMATED 170 10*3/uL (130-400); RED BLOOD COUNT 3.55 10*6/uL (4.50-5.90); RED CELL DISTRI WIDTH 12.2 % (0-14.5); WHITE BLOOD COUNT 4.4 10*3/uL (4.8-10.8)
[2021-06-06 08:00] VITALS: BP 135/65
[2021-06-06 12:00] VITALS: BP 90/58; BP 97/49
[2021-06-06 16:00] VITALS: BP 112/50
[2021-06-06 20:00] VITALS: BP 120/50
[2021-06-07] VITALS: BP 122/63
[2021-06-07 06:05] LABS: BASO % 0.3 % (0.0-1.0); EOS # 0.2 10*3/uL (0.0-0.4); EOS % 4.1 % (1.0-4.0); HEMATOCRIT 37.7 % (42.0-52.0); LYMPH # 1.1 10*3/uL (1.3-4.4); LYMPH % 18.8 % (27.0-41.0); MEAN CELL VOLUME 96.7 fl (80.0-94.0); MEAN CORPUSCULAR HGB CONC 32.1 g/dl (33.0-37.0); MEAN PLATELET VOLUME 11.1 fl (9.6-12.3); MONO # 0.4 10*3/uL (0.1-1.0); MONO % 7.3 % (3.0-9.0); NEUT # 4.1 10*3/uL (2.3-7.9); NEUT % 69.2 % (47.0-73.0); PLATELET COUNT AUTOMATED 183 10*3/uL (130-400); RED CELL DISTRI WIDTH 12.3 % (0-14.5); WHITE BLOOD COUNT 5.9 10*3/uL (4.8-10.8)
[2021-06-07 06:12] LABS: ALBUMIN 3.2 gm/dl (3.1-4.5); CREATININE 2.17 mg/dL (0.70-1.30); POTASSIUM 4.2 mmol/L (3.5-5.1)
[2021-06-07 12:00] VITALS: BP 173/76
[2021-06-07 16:00] VITALS: BP 122/61
[2021-06-07 20:00] VITALS: BP 142/64
[2021-06-08] VITALS: BP 153/66
[2021-06-08 06:15] LABS: POTASSIUM 4.3 mmol/L (3.5-5.1)
[2021-06-08 06:29] LABS: CREATININE 1.87 mg/dL (0.70-1.30)
[2021-06-08 06:39] LABS: BASO % 0.4 % (0.0-1.0); EOS # 0.2 10*3/uL (0.0-0.4); EOS % 5.1 % (1.0-4.0); HEMATOCRIT 34.3 % (42.0-52.0); LYMPH # 1.5 10*3/uL (1.3-4.4); LYMPH % 32.7 % (27.0-41.0); MEAN CELL VOLUME 95.3 fl (80.0-94.0); MEAN CORPUSCULAR HGB 31.1 pg (27.0-31.0); MEAN CORPUSCULAR HGB CONC 32.7 g/dl (33.0-37.0); MEAN PLATELET VOLUME 10.8 fl (9.6-12.3); MONO # 0.4 10*3/uL (0.1-1.0); MONO % 8.5 % (3.0-9.0); NEUT # 2.4 10*3/uL (2.3-7.9); NEUT % 52.9 % (47.0-73.0); PLATELET COUNT AUTOMATED 175 10*3/uL (130-400); RED CELL DISTRI WIDTH 11.9 % (0-14.5); WHITE BLOOD COUNT 4.5 10*3/uL (4.8-10.8)
[2021-06-08 08:00] VITALS: BP 165/80
[2021-06-08 12:00] VITALS: BP 114/61
[2021-06-08] MEDS ORDERED: Humalog SQ (15:13)
[2021-06-08] MEDS ORDERED: CITALOPRAM20 MG PO (15:13)
[2021-06-08 16:00] VITALS: BP 140/70
== END 2021-06-08 17:47 | DRG 205 ==
LOC: ED 08:11 → EDHOLD 10:07 → 4E 10:07
PROVIDERS: Emergency Medicine; Internal Medicine; Student in an Organized Health Care Education/Training Program; ADMIT Family Medicine; ATTEND Family Medicine
DX: S22.31XA Fracture of one rib, right side, initial encounter for closed fracture (principal); N17.0 Acute kidney failure with tubular necrosis; G93.41 Metabolic encephalopathy; I13.0 Hypertensive heart and chronic kidney disease with heart failure and stage 1 through stage 4 chronic kidney disease, or unspecified chronic kidney disease; E87.1 Hypo-osmolality and hyponatremia; I50.32 Chronic diastolic (congestive) heart failure; S27.9XXA Injury of unspecified intrathoracic organ, initial encounter; G20 Parkinson's disease; E11.22 Type 2 diabetes mellitus with diabetic chronic kidney disease; N18.9 Chronic kidney disease, unspecified; I25.10 Atherosclerotic heart disease of native coronary artery without angina pectoris; K21.9 Gastro-esophageal reflux disease without esophagitis; Z20.822 Contact with and (suspected) exposure to COVID-19; F43.10 Post-traumatic stress disorder, unspecified; E11.65 Type 2 diabetes mellitus with hyperglycemia; E11.42 Type 2 diabetes mellitus with diabetic polyneuropathy; E66.09 Other obesity due to excess calories; W19.XXXA Unspecified fall, initial encounter; F63.9 Impulse disorder, unspecified; R31.29 Other microscopic hematuria; D64.9 Anemia, unspecified; R26.81 Unsteadiness on feet; X58.XXXA Exposure to other specified factors, initial encounter; Y93.89 Activity, other specified; Y92.89 Other specified places as the place of occurrence of the external cause; Y99.8 Other external cause status; Z91.041 Radiographic dye allergy status; Z83.3 Family history of diabetes mellitus; Z68.34 Body mass index [BMI] 34.0-34.9, adult; Z82.49 Family history of ischemic heart disease and other diseases of the circulatory system; Z79.899 Other long term (current) drug therapy